=== PATIENT | male | born 1970 | race Caucasian/White ===

== ENCOUNTER 2020-09-01 18:32 | Emergency (ER) | payer MEDICAID ==
[~2020-09-01] VITALS: Ht 177.8 cm; Wt 103.4 kg
[2020-09-01 18:39] VITALS: Ht 177.8 cm; Wt 103.4 kg
[2020-09-01 20:19] VITALS: BP 125/87
== END 2020-09-01 20:19 | disposition home or self-care (01) ==
LOC: ED 18:32
DX: R06.6 Hiccough (principal); E11.9 Type 2 diabetes mellitus without complications